=== PATIENT | male | born 1955 | race Caucasian/White ===

== ENCOUNTER 2019-03-17 04:10 | Inpatient (IN) | payer OTHER ==
[~2019-03-17] VITALS: Ht 182.9 cm; Wt 90.7 kg
--- NOTE | 2019-03-17 04:11 | NUR ---
PT TAKEN TO ER BED 11
[2019-03-17 04:13] VITALS: BP 175/108
--- NOTE | 2019-03-17 04:15 | NUR ---
63 y/o M presented to ED with c/o difficulty breathing x2 weeks. Per pt, "I fell about 2 weeks ago and a ladder fell across my chest. Ever since then its been hard to breathe". unable to lie flat. HOB at 90 degrees. -O2 saturation was 90% on room air. Oxygen therapy intiated at 2L, O2 stat remains 90%. increased to 3L O2 stat 91%. increased to 4L O2 stat 97%. Addendum: 03/17/19 at 0442 by TRIP 63 y/o M presented to ED with c/o difficulty breathing x2 weeks. Per pt, "I fell about 2 weeks ago when i was putting up blinds and a ladder fell across my chest. Ever since then its been hard to breathe". R side of chest impacted. unable to lie flat or at 30-45 degrees.HOB at 90 degrees for comfort. bilateral lungs garza clear. discomfort felt during inspiration. labored breathing. -O2 saturation was 90% on room air. Oxygen therapy intiated at 2L, O2 stat remains 90%. increased to 3L O2 stat 91%. increased to 4L O2 stat 97%.
--- NOTE | 2019-03-17 04:20 | NUR ---
Dr. Peralta evaluating patient at bedside.
[2019-03-17] MEDS ORDERED: NACL 0.9% 500 ML IV ONE (04:25)
[2019-03-17] MEDS ORDERED: ALBUTEROL SULFATE/IPRATROPIU 3 ML SOL IH ONE (04:25)
--- NOTE | 2019-03-17 04:25 | NUR ---
EKG PERFORMED AT BEDSIDE
--- NOTE | 2019-03-17 04:28 | NUR ---
RT AND LAB AT BEDSIDE.
[2019-03-17] MEDS ORDERED: NITROGLYCERIN 2% 1 GM PKT TP ONE (04:35)
--- NOTE | 2019-03-17 04:38 | NUR ---
X-Ray at bedside.
[2019-03-17 04:42] LABS: BASOPHILS # (AUTO) 0.1 K/uL (0.00-0.22); BASOPHILS % (AUTO) 0.9 % (0.0-2.0); EOSINOPHILS # (AUTO) 0.1 K/uL (0-0.4); EOSINOPHILS % (AUTO) 0.9 % (0.0-4.0); HEMATOCRIT 41.1 % (36-52); HEMOGLOBIN 13.6 g/dL (12.0-18.0); LYMPHOCYTES # (AUTO) 1.7 K/uL (2.0-11.5); LYMPHOCYTES % (AUTO) 15.7 % (20.5-51.1); MEAN CORPUSCULAR HEMOGLOBIN 31 pg (27-31); MEAN CORPUSCULAR HGB CONC 33 g/dL (33-37); MEAN CORPUSCULAR VOLUME 94.7 fL (80-94); MONOCYTES % (AUTO) 9.1 % (1.7-9.3); NEUTROPHILS # (AUTO) 7.9 K/uL (1.8-7.7); NEUTROPHILS % (AUTO) 73.4 % (42.2-75.2); PLATELET COUNT (AUTO) 323 K/uL (140-450); RED BLOOD CELL COUNT(AUTO) 4.34 MIL/uL (4.20-6.10); RED CELL DISTRIBUTION WIDTH 16.9 % (11.6-13.7); WHITE BLOOD COUNT (AUTO) 10.8 K/uL (4.8-10.8)
[2019-03-17] MEDS ORDERED: FUROSEMIDE 40 MG/4 ML VIAL IVP ONE (04:55)
[2019-03-17] MEDS ORDERED: PIPERACILLIN/TAZOBACTAM 3.375 GM in DEXTROSE 5% 50 ML IV ONE (04:55)
[2019-03-17 05:01] LABS: PROTHROMBIN TIME 12.4 secs (10.8-13.4)
[2019-03-17] MEDS ORDERED: PIPERACILLIN/TAZOBACTAM 3.375 GM VIAL IV ONE (05:08)
[2019-03-17 05:10] LABS: ALBUMIN 2.7 g/dL (3.4-5.0); ANION GAP 13.3 (8-16); CARBON DIOXIDE 29.4 mmol/L (21-32); CREATININE 1.1 mg/dL (0.7-1.3); POTASSIUM 3.7 mmol/L (3.5-5.1); TOTAL BILIRUBIN 0.6 mg/dL (0.0-1.0)
[2019-03-17] MEDS ORDERED: ASPIRIN 81 MG TAB.CHEW PO ONE (05:20)
--- NOTE | 2019-03-17 05:30 | NUR ---
Pt awake. VSS. bedrails x2 up. HOB elevatd for comfort. Will continue to monitor.
[2019-03-17] MEDS ORDERED: ONDANSETRON 4 MG/2 ML VIAL IVP PRN (05:45)
[2019-03-17] MEDS ORDERED: ACETAMINOPHEN 325 MG TAB PO PRN (05:45)
[2019-03-17] MEDS ORDERED: cloNIDine 0.1 MG TAB PO PRN ×2 (05:50→07:16)
--- NOTE | 2019-03-17 06:10 | NUR ---
Patient will be admitted to care of Dr. Moreno. Admited to [facility] [place] . Will go to room 111B Belongings list completed. Report to RAIN Franks. Transfer of care at this time.
--- NOTE | 2019-03-17 07:05 | NUR ---
RECEIVED REPORT FROM CENTRAL SERVICE TECHNICIAN RN AT BEDSIDE FOR CONTINUITY OF CARE. PATIENT AWAKE AND ALERT, ON 4L O2 VIA NC. PATIENT DX OF CHF. DENIES CHEST PAIN AT PRESENT. IV SITE INTACT, SL. UPDATED BOARD. MRSA SCREENING DONE. SAFETY PRECAUTIONS IN PLACE, CALL LIGHT WITHIN REACH, WILL CONTINUE TO MONITOR PATIENT.
[2019-03-17 07:14] LABS: APPEARANCE,URINE SL CLOUDY (CLEAR); BILIRUBIN,URINE NEGATIVE (NEGATIVE); BLOOD, URINE 2+ (NEGATIVE); COLOR,URINE YELLOW (YELLOW); LEUKOCYTE ESTERASE ,URINE 2+ (NEGATIVE); NITRITE, URINE NEGATIVE (NEGATIVE); PH,URINE 5.5 (5.0-9.0); UGLUCOSE NEGATIVE (NEGATIVE)
[2019-03-17 08:00] VITALS: BP 153/78
[2019-03-17 08:04] LABS: WBC,URINE 60-80 /HPF (0-5)
--- NOTE | 2019-03-17 08:10 | NUR ---
ORIENTED PATIENT TO ROOM, TV, BATHROOM. INITIAL ASSESSMENT DONE. WILL CONTINUE TO MONITOR PATIENT.
--- NOTE | 2019-03-17 08:14 | NUR ---
PATIENT HAS BEEN SCREENED AND CATEGORIZED MODERATE NUTRITION RISK. PATIENT WILL BE SEEN WITHIN 3-5 DAYS OF ADMISSION. 03/19/19JOSE AR[address]
[2019-03-17] MEDS: LISINOPRIL 10 MG TAB PO SCH (09:28)
[2019-03-17] MEDS: FUROSEMIDE 40 MG/4 ML VIAL IVP SCH ×2 (09:28→20:16)
[2019-03-17] MEDS: METOPROLOL 25 MG TAB PO SCH ×2 (09:28→20:16)
[2019-03-17] MEDS: ENOXAPARIN 40 MG/0.4 ML SYR SUBQ SCH (09:36)
--- NOTE | 2019-03-17 09:36 | NUR ---
ORDERED MEDICATIONS GIVEN. PATIENT TOLERATED IT. PATIENT DENIES CHEST PAIN OR SOB. SAFETY PRECAUTIONS IN PLACE, CALL LIGHT WITHIN REACH, WILL CONTINUE TO MONITOR PATIENT.
--- NOTE | 2019-03-17 10:50 | NUR ---
SATURATION 98% ON SUPPLEMENTAL OXYGEN AT 4 LPM VIA NC TITRATED FIO2 TO 2 LPM [place]/RN NOTIFIED
[2019-03-17] MEDS ORDERED: PNEUMOCOCCAL VACCINE 23 MCG/0.5 ML VIAL IMVAC SCH (11:20)
--- NOTE | 2019-03-17 11:39 | NUR ---
Follow up appointment with PCP Dr. Nicky Bonilla on 03/25/19 at 0900. Clinic address [address] [place] [id number], . Apointment given to pt with verbal understanding.
[2019-03-17 12:00] VITALS: BP 131/91
[2019-03-17] MEDS ORDERED: POTASSIUM CHLORIDE 10 MEQ TABER PO PRN (14:00)
--- NOTE | 2019-03-17 14:00 | NUR ---
DR CERRATO IN TO SEE PATIENT. WILL WAIT FOR HIS ORDERS. PATIENT CURRENTLY RESTING IN BED, NO COMPLAINTS AT THIS TIME. SAFETY PRECAUTIONS IN PLACE, CALL LIGHT WITHIN REACH, WILL CONTINUE TO MONITOR PATIENT.
[2019-03-17 16:00] VITALS: BP 139/92
--- NOTE | 2019-03-17 19:24 | NUR ---
REPORT GIVEN TO REGISTERED NURSE MIDWIFE NURSE AT BEDSIDE FOR CONTINUITY OF CARE. PATIENT SLEEPING AND IN STABLE CONDITION.
--- NOTE | 2019-03-17 19:25 | NUR ---
RECEIVED BEDSIDE REPORT FROM DAY SHIFT RN. PT IS AAO X4. ON NC 2L O2. RESPIRATIONS ARE EQUAL AND UNLABORED. PT DENIES ANY PAIN. SHAI PITTING EDEMA. PT IS AMBULATORY. ON STRICT I&O. IV ON L FA 20G SL. HAS BLISTER ON L BIG TOE. AND BLISTER ON R JASON. PLAN OF CARE DISCUSSED AND SAFETY MEASURES ARE IN PLACE. CALL LIGHT WITHIN REACH.
[2019-03-17 20:00] VITALS: BP 145/96
--- NOTE | 2019-03-17 20:16 | NUR ---
VITAL SIGNS ARE STABLE. DUE MEDICATIONS GIVEN PT TOLERATED WELL. SAFETY MEASURES ARE IN PLACE.
--- NOTE | 2019-03-17 21:00 | NUR ---
PT RESTING COMFORTABLY IN BED. VISITOR AT BEDSIDE. ALL NEEDS MET AT THIS TIME. CALL LIGHT WITHIN REACH.
[2019-03-18] VITALS: BP 134/84
--- NOTE | 2019-03-18 | NUR ---
VITAL SIGNS ARE WITHIN NORMAL LIMITS. WOUNDS WERE CLEANSE WITH NS AND APPLIED VERSATEL DRESSING PER ORDERS. PT TOLERATED WELL. NO S/S OF DISTRESS. SAFETY MEASURES ARE IN PLACE. CALL LIGHT WITHIN REACH. WILL CONTINUE TO MONITOR.
--- NOTE | 2019-03-18 02:43 | NUR ---
PT IS SLEEPING COMFORTABLY IN BED. RESPIRATIONS ARE EQUAL AND UNLABORED. CALL LIGHT WITHIN REACH. WILL CONTINUE TO MONITOR.
[2019-03-18 04:00] VITALS: BP 133/94
--- NOTE | 2019-03-18 04:00 | NUR ---
VITAL SIGNS ARE WITHIN NORMAL LIMITS. PT SITTING AT THE EDGE OF THE BED EATING A SANDWICH. NO COMPLAINS AT THIS TIME. CALL LIGHT WITHIN REACH. WILL CONTINUE TO MONITOR.
[2019-03-18 06:50] LABS: ALBUMIN 2.4 g/dL (3.4-5.0); ANION GAP 9.2 (8-16); CARBON DIOXIDE 34.1 mmol/L (21-32); CREATININE 1.2 mg/dL (0.7-1.3); MAGNESIUM 1.6 mg/dL (1.8-2.4); POTASSIUM 3.3 mmol/L (3.5-5.1); TOTAL BILIRUBIN 0.4 mg/dL (0.0-1.0)
--- NOTE | 2019-03-18 07:12 | NUR ---
GAVE BEDSIDE REPORT TO AMBER RN. PT ENDORSED IN STABLE CONDITION. SAFETY MEASURES IN PLACE.
--- NOTE | 2019-03-18 07:13 | NUR ---
RECEIVED REPORT FROM REFRIGERATING TECHNICIAN RN AT BEDSIDE FOR CONTINUITY OF CARE. PATIENT AWAKE AND ALERT, ON 2L O2 VIA NC. PATIENT DENIES CHEST PAIN AT PRESENT. NO SIGN OF SOB OR DISTRESS NOTED. IV SITE INTACT, SL. UPDATED BOARD. UPDATED PATIENT WITH PLAN OF CARE. HE VERBALIZED UNDERSTANDING. SAFETY PRECAUTIONS IN PLACE, CALL LIGHT WITHIN REACH, WILL CONTINUE TO MONITOR PATIENT.
[2019-03-18 08:00] VITALS: BP 142/92
[2019-03-18 08:30] LABS: BASOPHILS # (AUTO) 0.1 K/uL (0.00-0.22); BASOPHILS % (AUTO) 0.8 % (0.0-2.0); EOSINOPHILS # (AUTO) 0.1 K/uL (0-0.4); EOSINOPHILS % (AUTO) 1.1 % (0.0-4.0); HEMATOCRIT 40.5 % (36-52); HEMOGLOBIN 13.2 g/dL (12.0-18.0); LYMPHOCYTES # (AUTO) 1.4 K/uL (2.0-11.5); LYMPHOCYTES % (AUTO) 13.7 % (20.5-51.1); MEAN CORPUSCULAR HEMOGLOBIN 31 pg (27-31); MEAN CORPUSCULAR HGB CONC 33 g/dL (33-37); MEAN CORPUSCULAR VOLUME 95.2 fL (80-94); MONOCYTES # (AUTO) 1.1 K/uL (0.8-1.0); MONOCYTES % (AUTO) 11.1 % (1.7-9.3); NEUTROPHILS # (AUTO) 7.4 K/uL (1.8-7.7); NEUTROPHILS % (AUTO) 73.3 % (42.2-75.2); PLATELET COUNT (AUTO) 312 K/uL (140-450); RED BLOOD CELL COUNT(AUTO) 4.25 MIL/uL (4.20-6.10); RED CELL DISTRIBUTION WIDTH 17.3 % (11.6-13.7); WHITE BLOOD COUNT (AUTO) 10.1 K/uL (4.8-10.8)
[2019-03-18] MEDS: LISINOPRIL 10 MG TAB PO SCH (09:11)
[2019-03-18] MEDS: FUROSEMIDE 40 MG/4 ML VIAL IVP SCH ×2 (09:12→20:25)
[2019-03-18] MEDS: ASPIRIN 81 MG TAB.CHEW PO SCH (09:12)
[2019-03-18] MEDS: METOPROLOL 25 MG TAB PO SCH ×2 (09:12→20:25)
--- NOTE | 2019-03-18 09:17 | NUR ---
ORDERED MEDICATIONS GIVEN. PATIENT TOLERATED THEM. NO COMPLAINTS OF PAIN OR SOB AT THIS TIME. NO COMPLAINTS AT THIS TIME. SAFETY PRECAUTIONS IN PLACE, CALL LIGHT WITHIN REACH, WILL CONTINUE TO MONITOR PATIENT.
[2019-03-18] MEDS: ENOXAPARIN 40 MG/0.4 ML SYR SUBQ SCH (09:22)
--- NOTE | 2019-03-18 10:38 | NUR ---
PT COMPLAINED OF NASAL DRYNESS, ADDED HUMIDIFIER
[2019-03-18 12:00] VITALS: BP 127/86
--- NOTE | 2019-03-18 12:00 | NUR ---
DR CERRATO IN TO SEE THE PATIENT. WILL WAIT FOR HIS ORDERS.
[2019-03-18 16:00] VITALS: BP 125/87
--- NOTE | 2019-03-18 16:15 | NUR ---
VS WNL. PATIENT AWAKE AND ALERT. NO C/O PAIN, NO SIGN OF DISTRESS OR SOB NOTED. SAFETY PRECAUTIONS IN PLACE, CALL LIGHT WITHIN REACH, WILL CONTINUE TO MONITOR PATIENT.
--- NOTE | 2019-03-18 19:32 | NUR ---
REPORT GIVEN AT BEDSIDE TO SALES ENGINEER ENGINEERED PRODUCTS NURSE FOR CONTINUITY OF CARE. PATIENT IN STABLE CONDITION, SLEEPING.
--- NOTE | 2019-03-18 19:33 | NUR ---
RECEIVED FROM AM RN IN SITTING AT THE EDGE OF BED A/O X 4. ROM X 4. DX. OF CHF. HEPLOCKED LFA#20 PATENT. NO COMPLAINTS OF PAIN AT THIS TIME. CARE PLANS FOR THE NIGHT DISCUSSED WITH HIM. CALL LIGHT WITH IN REACH. TELEMETRY MONITORING. 02 SAT AT 95 % WITH 02 AT 2LPM/NC. ABLE TO VERBALIZE NEEDS WELL.
[2019-03-18 20:13] VITALS: BP 131/84
[2019-03-18] MEDS: methylPREDNISolone SS 40 MG/ML VIAL IVP SCH (20:25)
--- NOTE | 2019-03-18 20:30 | NUR ---
PT. SITTING AT SIDE OF BED WATCHING TV. ABLE TO VERBALIZE NEEDS WELL. MEDICATIONS TOLERATED WELL. NO COMPLAINTS DONE.
--- NOTE | 2019-03-18 21:11 | NUR ---
RECEIVED PATIENT ON 1L NASAL CANNULA, PULSE OX SAT 95%. NO RESPIRATORY DISTRESS NOTED AT THIS TIME. WILL CONTINUE TO MONITOR.
--- NOTE | 2019-03-18 22:47 | NUR ---
CHECKED ON PT. SLEEPING AT THIS TIME. NO RESTLESSNESS. CALL LIGHT WITH IN REACH.
--- NOTE | 2019-03-19 00:38 | NUR ---
PT. STILL AWAKE WATCHING TV. PROVIDED WITH ANOTHER SNACK REQUESTED. STATED HE IS HUNGRY AGAIN AND THAT HE CAN'T SLEEP YET AT THIS TIME RT HE KEEPS URINATING FROM THE LASIX MEDICATIONS HE IS TAKING. PER PT. HE USUALLY SLEEPS IN THE DAY TIME.
[2019-03-19 00:48] VITALS: BP 135/94
--- NOTE | 2019-03-19 01:40 | NUR ---
SLEEPING. TELEMETRY MONITORING.
--- NOTE | 2019-03-19 03:14 | NUR ---
SLEEPING AT THIS TIME. NO RESTLESSNESS. TELEMETRY MONITORING. CALL LIGHT WITH IN REACH.
[2019-03-19 03:54] VITALS: BP 142/88
--- NOTE | 2019-03-19 05:35 | NUR ---
PT. AWAKE AT THIS TIME AND WATCHING TV. ABLE TO GO BRP BY HIMSELF. TELEMETRY MONITORING. NO COMPLAINTS DONE. CALL LIGHT WITH IN REACH. A/O X 4.
[2019-03-19 06:39] LABS: BASOPHILS % (AUTO) 0.3 % (0.0-2.0); HEMATOCRIT 39.7 % (36-52); HEMOGLOBIN 13.4 g/dL (12.0-18.0); LYMPHOCYTES # (AUTO) 0.5 K/uL (2.0-11.5); LYMPHOCYTES % (AUTO) 6.3 % (20.5-51.1); MEAN CORPUSCULAR HEMOGLOBIN 32 pg (27-31); MEAN CORPUSCULAR HGB CONC 34 g/dL (33-37); MEAN CORPUSCULAR VOLUME 94.6 fL (80-94); MONOCYTES # (AUTO) 0.2 K/uL (0.8-1.0); MONOCYTES % (AUTO) 2.6 % (1.7-9.3); NEUTROPHILS # (AUTO) 7.5 K/uL (1.8-7.7); NEUTROPHILS % (AUTO) 90.8 % (42.2-75.2); PLATELET COUNT (AUTO) 313 K/uL (140-450); RED BLOOD CELL COUNT(AUTO) 4.19 MIL/uL (4.20-6.10); RED CELL DISTRIBUTION WIDTH 17.2 % (11.6-13.7); WHITE BLOOD COUNT (AUTO) 8.3 K/uL (4.8-10.8)
[2019-03-19 06:56] LABS: ALBUMIN 2.7 g/dL (3.4-5.0); ANION GAP 8.8 (8-16); CARBON DIOXIDE 34.2 mmol/L (21-32); CREATININE 1.1 mg/dL (0.7-1.3); TOTAL BILIRUBIN 0.4 mg/dL (0.0-1.0)
--- NOTE | 2019-03-19 07:20 | NUR ---
ENDORSED TO THE NEXT RN FOR CONTINUITY OF CARE. PT. ALREADY DRESSED UP IN HIS STREET CLOTHES AND STATED HE DEFINITELY IS GOING HOME TODAY.
--- NOTE | 2019-03-19 07:21 | NUR ---
RECEIVED REPORT FROM SET UP MECHANIC HEADING MACHINES RN. PT SITTING AT THE EDGE OF BED A/O X 4. DX OF CHF. SALINE LOCKED LFA#20 PATENT AND INTACT. NO COMPLAINTS OF PAIN AT THIS TIME. PLAN OF CARE DISCUSSED WITH PT AND HE VERBALIZED UNDERSTANDING. CALL LIGHT WITH IN REACH. TELEMETRY MONITORING. 02 SAT AT 93% WITH 02 AT 1LPM/NC. ABLE TO VERBALIZE NEEDS WELL. BED IN LOW POSITION, CALL LIGHT WITHIN REACH.
[2019-03-19 08:00] VITALS: BP 150/90
[2019-03-19] MEDS: methylPREDNISolone SS 40 MG/ML VIAL IVP SCH (09:26)
[2019-03-19] MEDS: ENOXAPARIN 40 MG/0.4 ML SYR SUBQ SCH (09:26)
[2019-03-19] MEDS: ASPIRIN 81 MG TAB.CHEW PO SCH (09:27)
[2019-03-19] MEDS: FUROSEMIDE 40 MG/4 ML VIAL IVP SCH (09:27)
[2019-03-19] MEDS: LISINOPRIL 10 MG TAB PO SCH (09:27)
[2019-03-19] MEDS: METOPROLOL 25 MG TAB PO SCH (09:27)
--- NOTE | 2019-03-19 09:28 | NUR ---
ADMINISTERED MORNING MEDS TO PT. PT TOLERATED WELL. ALL NEEDS CURRENTLY MET
--- NOTE | 2019-03-19 11:04 | NUR ---
PT SITTING AT BEDSIDE. ALL NEEDS CURRENTLY MET. WILL CONTINUE TO MONITOR PT CLOSELY.
[2019-03-19 12:00] VITALS: BP 124/85
--- NOTE | 2019-03-19 13:05 | NUR ---
03/19/19 RD INITIAL ASSESSMENT COMPLETED PLEASE REFER TO NUTRITION ASSESSMENT UNDER CARE ACTIVITY FOR ESTIMATED NUTRITIONAL NEEDS. 1. CONTINUE CARDIAC DIET TOLERATED 2. RD PROVIDED NUTRITION EDUCATION ON SODIUM RESTRICTION AND CHF 3. RD TO FOLLOW-UP 5-7 DAYS, HIGH RISK JOSE ARNETT, RD
--- NOTE | 2019-03-19 14:04 | NUR ---
PT IN BED WATCHING TV. NO COMPLAINTS OF PAIN AT THIS TIME. NO SOB NOTED. BED IN LOW POSITION, CALL LIGHT WITHIN REACH. WILL CONTINUE TO ROUND FREQUENTLY ON PT.
--- NOTE | 2019-03-19 16:00 | NUR ---
PT DISCHARGED HOME FOR SELF CARE. PT DISCHARGE TEACHING DONE. PT VERBALIZED UNDERSTANDING OF TEACHING. PT UNABLE TO SIGN PAPERWORK DUE TO WEAKNESS IN UPPER EXTREMITIES. IV REMOVED WITH TIP INTACT. WRIST BAND REMOVED AND PLACED IN SHRED BIN. PNA VACCINE GIVEN AT D/C. PT LEFT IN STABLE CONDITION. ALL PERSONAL BELONGINGS TAKEN WITH PT. PT INSTRUCTED TO FOLLOW-UP WITH PROVIDER WITHIN 3-5 DAYS.
== END 2019-03-19 16:00 | disposition home or self-care (01) | DRG 194 ==
LOC: MED 04:10 → MTU 05:46
PROVIDERS: ADMIT Internal Medicine Pulmonary Disease; ATTEND Internal Medicine Pulmonary Disease
PROC: 3E0234Z Introduction of Serum, Toxoid and Vaccine into Muscle, Percutaneous Approach (ICD-10-PCS; principal; 2019-03-19)
DX: I11.0 Hypertensive heart disease with heart failure (principal); E44.0 Moderate protein-calorie malnutrition; J44.0 Chronic obstructive pulmonary disease with (acute) lower respiratory infection; M48.02 Spinal stenosis, cervical region; J44.1 Chronic obstructive pulmonary disease with (acute) exacerbation; I50.23 Acute on chronic systolic (congestive) heart failure; F17.210 Nicotine dependence, cigarettes, uncomplicated; Z68.27 Body mass index [BMI] 27.0-27.9, adult; Z98.1 Arthrodesis status; Z23 Encounter for immunization
CPT/HCPCS: 36415; 36600; 71045; 80053; 81001; 82803; 83605; 83735; 83880; 84484; 85025; 85610; 85730; 87040; 87081; 87086; 90732; 93005; 94640; 96361; 96365; 96375; 99285; J1650; J1940; J2543; J2920; J7620; Q0092

== ENCOUNTER 2023-04-11 06:10 | Inpatient (IN) | payer OTHER ==
[~2023-04-11] VITALS: Ht 182.9 cm; Wt 98.9 kg
[2023-04-11] VITALS (10 sets, daily range): BP systolic 91–131; BP diastolic 35–91
--- NOTE | 2023-04-11 06:15 | NUR ---
PT BIBA ALS ER BED 10
[2023-04-11] MEDS ORDERED: DILTIAZEM 25 MG/5 ML VIAL IVP ONE ×4 (06:25→08:39)
[2023-04-11] MEDS ORDERED: cefTRIAXone 1,000 MG in DEXT 5% MINI-BAG PLUS 50 ML IV ONE (06:40)
[2023-04-11] MEDS ORDERED: ACETAMINOPHEN 650 MG SUPP RC ONE (06:45)
--- NOTE | 2023-04-11 06:46 | NUR ---
LABS URINE AND COVID SWAB OBTAINED AND SENT TO LAB
[2023-04-11] MEDS: NACL 0.9% 2,000 ML IV SCH ×2 (06:47→08:06)
[2023-04-11] MEDS ORDERED: cefTRIAXone 1,000 MG VIAL ONE (06:48)
--- NOTE | 2023-04-11 07:11 | NUR ---
PT TO CT
[2023-04-11 07:22] LABS: ALBUMIN 3.6 g/dL (3.4-5.0); ANION GAP 16.8 (8-16); CARBON DIOXIDE 28.1 mmol/L (21-32); CREATININE 2.9 mg/dL (0.6-1.3); POTASSIUM 4.9 mmol/L (3.5-5.1); TOTAL BILIRUBIN 1.5 mg/dL (0.0-1.0)
[2023-04-11 07:26] LABS: BASOPHILS # (AUTO) 0.1 K/uL (0.00-0.22); HEMOGLOBIN 16.8 g/dL (12.0-18.0); LYMPHOCYTES # (AUTO) 0.6 K/uL (2.0-11.5); MEAN CORPUSCULAR HEMOGLOBIN 30 pg (27-31); MEAN CORPUSCULAR HGB CONC 32 g/dL (33-37); MONOCYTES # (AUTO) 0.4 K/uL (0.8-1.0); WHITE BLOOD COUNT (AUTO) 7.2 K/uL (4.8-10.8)
[2023-04-11 07:43] LABS: BASOPHILS % (AUTO) 0.7 % (0.0-2.0); EOSINOPHILS % (AUTO) 0.6 % (0.0-4.0); HEMATOCRIT 51.8 % (36-52); LYMPHOCYTES % (AUTO) 7.8 % (20.5-51.1); MEAN CORPUSCULAR VOLUME 92.8 fL (80-94); MONOCYTES % (AUTO) 5.1 % (1.7-9.3); NEUTROPHILS # (AUTO) 6.2 K/uL (1.8-7.7); NEUTROPHILS % (AUTO) 85.8 % (42.2-75.2); PLATELET COUNT (AUTO) 285 K/uL (140-450); RED BLOOD CELL COUNT(AUTO) 5.59 MIL/uL (4.20-6.10); RED CELL DISTRIBUTION WIDTH 18.1 % (11.6-13.7)
[2023-04-11] MEDS ORDERED: NACL 0.9% 1,000 ML IV ONE ×2 (08:05→10:10)
[2023-04-11 08:40] LABS: APPEARANCE,URINE CLEAR (CLEAR); BILIRUBIN,URINE 2+ (NEGATIVE); BLOOD, URINE 3+ (NEGATIVE); COLOR,URINE YELLOW (YELLOW); LEUKOCYTE ESTERASE ,URINE 2+ (NEGATIVE); NITRITE, URINE NEGATIVE (NEGATIVE); PH,URINE 6.5 (5.0-9.0); UGLUCOSE TRACE (NEGATIVE)
[2023-04-11 08:51] LABS: RBC,URINE 20-50 /HPF (0-5)
--- NOTE | 2023-04-11 08:58 | NUR ---
UPON RETURN FROM X RAYS, PT AWAKE ALERT X 3, "I'VE ALWAYS HAD AFIB, IT CAN GO SO FAST SOMETIMES
--- NOTE | 2023-04-11 09:00 | NUR ---
SISTER REYNA AT BEDSIDE "HE LIVES SKIP AND DOES NOT DRINK WATER ONLY [place]W" Addendum: 04/11/23 at 1047 by DEVAN LIVES ALONE
[2023-04-11] MEDS: NACL 0.9% 1,000 ML IV SCH ×2 (10:45→15:54)
[2023-04-11] MEDS ORDERED: NOREPINEPHRINE 16 MG in DEXTROSE 5% 250 ML IV PRN (10:45)
--- NOTE | 2023-04-11 10:47 | NUR ---
DR SKINNER AWARE OF HR NOW 139, BP 93/64 ON 4TH L OF NS. PT RESTLESS, CONSOLABLE
[2023-04-11] MEDS ORDERED: ACETAMINOPHEN 325 MG TAB PO PRN (11:15)
[2023-04-11] MEDS ORDERED: NITROGLYCERIN 0.4 MG TAB SL PRN (11:15)
[2023-04-11] MEDS ORDERED: POTASSIUM CHLORIDE 10 MEQ TABER PO PRN (11:15)
[2023-04-11] MEDS ORDERED: MAG SULF 2000 MG/WATER PREMIX 50 ML IV PRN (11:15)
[2023-04-11] MEDS ORDERED: ONDANSETRON 4 MG/2 ML VIAL IVP PRN (11:15)
[2023-04-11 11:57] LABS: ANION GAP 13.1 (8-16); CARBON DIOXIDE 27.1 mmol/L (21-32); CREATININE 2.6 mg/dL (0.6-1.3); POTASSIUM 4.2 mmol/L (3.5-5.1)
[2023-04-11 12:03] LABS: PROTHROMBIN TIME 16.7 secs (10.8-13.4)
[2023-04-11 12:10] LABS: CHOL/HDL RATIO 2.4 (1-4.5); FREE T4 (FREE THYROXINE) 1.53 ng/dL (0.76-1.46); MAGNESIUM 1.6 mg/dL (1.8-2.4); PHOSPHORUS 5.3 mg/dL (2.5-4.9); THYROID STIMULATING HORMONE 0.75 uIU/mL (0.34-3.74)
--- NOTE | 2023-04-11 12:11 | NUR ---
PER PT "REYNA IS JUST A FRIEND, MY SISTER'S NAME IS MAY, I HAVE A BROTHERS EDGAR AND ROMAN, I LIVE IN [address] [place] [address] [place] [address]"
--- NOTE | 2023-04-11 12:15 | NUR ---
Patient will be admitted to care of DR SKINNER. Admited to ICU. Will go to room 1. Belongings list completed. Report to CALEB RODRIGEZ.
--- NOTE | 2023-04-11 12:35 | NUR ---
Admission to ICU Received pt drowsy, arousable, equal chest rise and fall, on 3L nasal cannula. Pt frequently moving in bed but states no pain or distress. Pt AOx3, forgetful. IV sites intact, patent, IV fluid infusing to right FA 20G. Pt with sandhu in place. Edematous BLE. Pt with fall risk precautions in place.
[2023-04-11] MEDS ORDERED: HEPARIN PER PHARMACY MC PRN (13:00)
[2023-04-11] MEDS ORDERED: hePARIN / DEXT 5% PREMIX 250 ML IV SCH (13:00)
--- NOTE | 2023-04-11 13:00 | NUR ---
EKG and echocardiogram being done at bedside, pt unable to stay still to be cooperative with testing although reoriented and reinstructed multiple times to be still for testing. Pt states understanding and states "I have no control over the limbs sometimes."
--- NOTE | 2023-04-11 15:00 | NUR ---
Ultrasound being done at bedside
[2023-04-11] MEDS ORDERED: NOREPINEPHRINE 4 MG in DEXTROSE 5% 250 ML IV PRN (15:25)
--- NOTE | 2023-04-11 15:25 | NUR ---
Dr. Daniel rounding on pt.
--- NOTE | 2023-04-11 15:47 | NUR ---
Placed call out to pt's sister Stefania Cutler and requested home medication list for reconciliation. Stefania states she will have a list and bring to hospital today. Addendum: 04/11/23 at 1747 by Agency RAIN RN CORRECTION: According to pt, Stefania Cutler is a friend.
[2023-04-11] MEDS ORDERED: APIX5TAB PO (16:32)
[2023-04-11] MEDS ORDERED: SPIR50TA PO (17:53)
[2023-04-11] MEDS ORDERED: TAMS0.4C96 PO (17:53)
[2023-04-11] MEDS ORDERED: EMPA10TA PO (17:53)
[2023-04-11] MEDS ORDERED: CARV6.25 PO (17:53)
--- NOTE | 2023-04-11 17:54 | NUR ---
Medication reconciliation done with information provided by patient's friend, Stefania Cutler. Stefania states there may be more medications, but states she will call back.
--- NOTE | 2023-04-11 18:00 | NUR ---
Pt provided with dinner tray, able to feed self. Offered to clean up pt, but pt states "I'm still eating, I don't need to clean up. Just leave me like this."
[2023-04-11] MEDS ORDERED: DIGOXIN 0.25 MG/ML AMP IV SCH (18:08)
[2023-04-11] MEDS: ALBUTEROL SULFATE/IPRATROPIU 3 ML SOL IH SCH ×2 (18:56→23:20)
--- NOTE | 2023-04-11 19:00 | NUR ---
Pt still eating dinner, states he is not done yet.
--- NOTE | 2023-04-11 19:15 | NUR ---
Endorsed plan of care to RN.
--- NOTE | 2023-04-11 19:55 | NUR ---
AT 1930- Andre PRITESH CONTAMINATED LAND CONSULTANT GAVE A BEDSIDE REPORT
--- NOTE | 2023-04-11 19:56 | NUR ---
AT 1945 REMAINS AFIB UNCONTROLLED [id number]
--- NOTE | 2023-04-11 20:59 | NUR ---
2230 pm- pt is found full of scattered hard and soft formed stool and complete bed bath given and total linen changed done, IV secured
[2023-04-11] MEDS ORDERED: ATORVASTATIN 20 MG TAB PO SCH (21:00)
[2023-04-11] MEDS: DOCUSATE SODIUM 100 MG GELCAP PO SCH (21:00)
[2023-04-11] MEDS ORDERED: METOPROLOL 25 MG TAB PO SCH (21:00)
[2023-04-11] MEDS: PIPERACILLIN/TAZOBACTAM 3.375 GM in DEXTROSE 5% 50 ML IV SCH (21:11)
--- NOTE | 2023-04-11 21:34 | NUR ---
above incident happened at 2030
[2023-04-12] VITALS (10 sets, daily range): BP systolic 94–131; BP diastolic 36–101
[2023-04-12 00:11] LABS: BARBITURATE, URINE NEGATIVE ng/ml (NEG <=200); BENZODIAZEPINE, URINE NEGATIVE ng/mL (NEG <=200); CANNABINOID, URINE NEGATIVE ng/mL (NEG <=50); COCAINE, URINE NEGATIVE ng/mL (NEG <=300); OPIATE, URINE NEGATIVE ng/mL (NEG <=2000); PHENCYCLIDINE SCREEN,URINE NEGATIVE ng/mL (NEG <=25)
[2023-04-12] MEDS: ALBUTEROL SULFATE/IPRATROPIU 3 ML SOL IH SCH ×6 (03:00→22:53)
--- NOTE | 2023-04-12 03:06 | NUR ---
PATIENT ASLEEP. RN REQUESTED NOT TO WAKE UP PATIENT FOR HHNTX. NO SOB NOTED
--- NOTE | 2023-04-12 05:58 | NUR ---
[id number] PT ALREADY SEEN IN BED, LYING ON HIS BED WITH SCATTERED SOFT TO FIRM STOOL. BIG TO SMALL AND ALL WIRES AND BLUE PLASTIC SHEET WITH HUGE AMT OF SOFT STOOL, tHE NURSE Andre icu DAY SHIFT SAID SHE WAS JULIA BUSY AND PT. REFUSED TO BE CLEANED. we CLEAN THE PT AND DID NOT REFUSED TO BE CLEANED
[2023-04-12] MEDS ORDERED: DIGOXIN 0.25 MG/ML AMP IV SCH ×2 (06:00)
--- NOTE | 2023-04-12 06:05 | NUR ---
P-T. WANT TO BE OUT OF BED BEC BY STANDING HE CAN BREATH BETTER
[2023-04-12 06:10] LABS: BASOPHILS % (AUTO) 0.4 % (0.0-2.0); EOSINOPHILS % (AUTO) 0.1 % (0.0-4.0); HEMATOCRIT 46.9 % (36-52); LYMPHOCYTES # (AUTO) 1.3 K/uL (2.0-11.5); LYMPHOCYTES % (AUTO) 11.8 % (20.5-51.1); MEAN CORPUSCULAR HEMOGLOBIN 30 pg (27-31); MEAN CORPUSCULAR HGB CONC 32 g/dL (33-37); MEAN CORPUSCULAR VOLUME 93.7 fL (80-94); MONOCYTES # (AUTO) 1.1 K/uL (0.8-1.0); MONOCYTES % (AUTO) 10.2 % (1.7-9.3); NEUTROPHILS # (AUTO) 8.3 K/uL (1.8-7.7); NEUTROPHILS % (AUTO) 77.5 % (42.2-75.2); PLATELET COUNT (AUTO) 181 K/uL (140-450); RED BLOOD CELL COUNT(AUTO) 5.01 MIL/uL (4.20-6.10); RED CELL DISTRIBUTION WIDTH 18.7 % (11.6-13.7); WHITE BLOOD COUNT (AUTO) 10.6 K/uL (4.8-10.8)
[2023-04-12 07:11] LABS: MAGNESIUM 1.6 mg/dL (1.8-2.4)
--- NOTE | 2023-04-12 07:30 | NUR ---
Received report on pt. Pt currently sleeping in bed, arousable, equal chest rise and fall. No acute distress noted, pt on 3L O2 via nasal cannula. IV sites intact, patent, currently on heparin drip 1000 units/hr, waiting for PTT results per protocol. Echevarria in place draining urine to gravity.
[2023-04-12] MEDS: PIPERACILLIN/TAZOBACTAM 3.375 GM in DEXTROSE 5% 50 ML IV SCH ×2 (07:49→12:22)
[2023-04-12] MEDS: HYDROcodone/APAP 7.5/325 MG 1 TAB PO PRN ×2 (07:50→16:08)
[2023-04-12] MEDS: ASPIRIN 81 MG TAB.CHEW PO SCH (08:09)
[2023-04-12] MEDS: DOCUSATE SODIUM 100 MG GELCAP PO SCH ×2 (08:09→08:43)
[2023-04-12] MEDS: ATORVASTATIN 20 MG TAB PO SCH (08:10)
[2023-04-12] MEDS: PANTOPRAZOLE 40 MG INJ VIAL IVP SCH (08:10)
[2023-04-12] MEDS ORDERED: lisinopriL 5 MG TAB PO SCH (09:00)
[2023-04-12] MEDS: METOPROLOL 25 MG TAB PO SCH ×3 (09:56→13:12)
[2023-04-12 10:00] LABS: ANION GAP 17.9 (8-16); CARBON DIOXIDE 21.3 mmol/L (21-32); CREATININE 2.4 mg/dL (0.6-1.3); POTASSIUM 4.2 mmol/L (3.5-5.1)
--- NOTE | 2023-04-12 10:20 | NUR ---
Dr. Deal rounding on pt, new orders made.
--- NOTE | 2023-04-12 12:30 | NUR ---
Dr. Mistry updated on pt's condition, new orders made.
--- NOTE | 2023-04-12 17:30 | NUR ---
Pt transfer to Telemetry 108B via wheelchair and oxygen. Pt with steady gait to ambulate to ambulate to bed. All belongings sent with pt. Endorsed plan of care and report to Josie RODRIGEZ.
--- NOTE | 2023-04-12 18:00 | NUR ---
RECEIVED PT TRANSFER FROM ICU VIA W/C.AWAKE,ALERT,ON 3L/NC, RESPIRATES EVEN AND UNLABORED,SALINE LOCK IN BOTH ARMS NEEDS ATTENDED,CALL LIGHT & PERSONAL ITEMS WITHIN PT REACH SAFETY MAINTAINED,CONTINUE TO MONITOR PT.
--- NOTE | 2023-04-12 20:00 | NUR ---
HAND-OFF REPORT RECEIVED FROM DEMETRIS PÉREZ FOR CONTINUITY OF CARE. PT RECEIVED STANDING AT BEDSIDE WITH VISITORS. DENIES NEEDS. NO ACUTE DISTRESS. CONTINUE TO MONITOR AND ASSIST NEEDED.
[2023-04-13] VITALS: BP 105/59
[2023-04-13] MEDS: DOCUSATE SODIUM 100 MG GELCAP PO SCH ×3 (00:28→21:00)
[2023-04-13] MEDS: PIPERACILLIN/TAZOBACTAM 3.375 GM in DEXTROSE 5% 50 ML IV SCH ×4 (00:31→22:22)
[2023-04-13] MEDS: METOPROLOL 25 MG TAB PO SCH ×4 (00:33→23:02)
[2023-04-13] MEDS: APIXABAN 2.5 MG TAB PO SCH ×3 (00:35→23:08)
[2023-04-13] MEDS: ALBUTEROL SULFATE/IPRATROPIU 3 ML SOL IH SCH ×5 (03:38→19:09)
[2023-04-13 06:30] LABS: MAGNESIUM 1.8 mg/dL (1.8-2.4); PHOSPHORUS 3.4 mg/dL (2.5-4.9)
[2023-04-13 06:51] LABS: BASOPHILS # (AUTO) 0.1 K/uL (0.00-0.22); BASOPHILS % (AUTO) 0.7 % (0.0-2.0); EOSINOPHILS % (AUTO) 0.3 % (0.0-4.0); HEMATOCRIT 42.9 % (36-52); HEMOGLOBIN 13.8 g/dL (12.0-18.0); LYMPHOCYTES # (AUTO) 1.2 K/uL (2.0-11.5); LYMPHOCYTES % (AUTO) 10.5 % (20.5-51.1); MEAN CORPUSCULAR HEMOGLOBIN 30 pg (27-31); MEAN CORPUSCULAR HGB CONC 32 g/dL (33-37); MEAN CORPUSCULAR VOLUME 93.1 fL (80-94); MONOCYTES # (AUTO) 0.9 K/uL (0.8-1.0); MONOCYTES % (AUTO) 7.7 % (1.7-9.3); NEUTROPHILS # (AUTO) 9.2 K/uL (1.8-7.7); NEUTROPHILS % (AUTO) 80.8 % (42.2-75.2); PLATELET COUNT (AUTO) 184 K/uL (140-450); RED BLOOD CELL COUNT(AUTO) 4.61 MIL/uL (4.20-6.10); RED CELL DISTRIBUTION WIDTH 18.5 % (11.6-13.7); WHITE BLOOD COUNT (AUTO) 11.4 K/uL (4.8-10.8)
[2023-04-13 06:58] LABS: ANION GAP 11.3 (8-16); CARBON DIOXIDE 27.7 mmol/L (21-32); CREATININE 2.2 mg/dL (0.6-1.3)
--- NOTE | 2023-04-13 07:18 | NUR ---
PATIENT HAS BEEN SCREENED AND CATEGORIZED HIGH NUTRITION RISK. PATIENT WILL BE SEEN WITHIN 1-2 DAYS OF ADMISSION. 04/11/23-04/13/[address] CONSULT RECEIVED FOR WOUNDS/PRESSURE INJURY AND CARDIAC DIET EDUCATION
--- NOTE | 2023-04-13 07:30 | NUR ---
HAND-OFF REPORT TO Irineo NURSE. CRITICAL LAB REPORTED TO BRODY BUN 63. UNEVENTFUL NOC.
[2023-04-13 08:00] VITALS: BP 107/61
[2023-04-13] MEDS: ATORVASTATIN 20 MG TAB PO SCH (08:52)
[2023-04-13] MEDS: PANTOPRAZOLE 40 MG INJ VIAL IVP SCH (08:52)
[2023-04-13] MEDS: ASPIRIN 81 MG TAB.CHEW PO SCH (08:53)
[2023-04-13 12:00] VITALS: BP 110/72
--- NOTE | 2023-04-13 15:45 | NUR ---
04/13/23 RD INITIAL ASSESSMENT COMPLETED. PLEASE REFER TO NUTRITION ASSESSMENT UNDER CARE ACTIVITY FOR ESTIMATED NUTRITIONAL NEEDS. 1. RECOMMEND ADDING MECHANICAL SOFT RENAL DIET TO 2GM SODIUM DIET TOLERATED 2. RECOMMEND MODESTO BID TO PROMOTE WOUND HEALING (PROVIDES 160 KCAL, 5 G PROTEIN) 3. RD TO FOLLOW-UP 2-3 DAYS, HIGH RISK HARVINDER GARCIA RD
[2023-04-13 16:00] VITALS: BP 110/64
--- NOTE | 2023-04-13 17:36 | NUR ---
awake,alert,afib hr 110,voided yellow urinal after sandhu cath removed give IV antibiotics due,no adverse reactions noted.needs attended, call light & personal items within pt reach,safety maintained continue to monitor pt.
[2023-04-13 20:00] VITALS: BP 121/70
[2023-04-14] VITALS: BP 100/62
--- NOTE | 2023-04-14 | NUR ---
REMINDS PT DON'T DRINK TOO MUCH SODA , IT HIGH IN SODIUM AND WATER THAT MAKES HIM BLOATED - PT VERBALIZES UNDERSTANDING .
--- NOTE | 2023-04-14 02:00 | NUR ---
RESTING ON BED , NO COMPLAIN MADE .
[2023-04-14 04:00] VITALS: BP 120/63
--- NOTE | 2023-04-14 04:00 | NUR ---
ROUNDS , NO S/SX OF ACUTE DISTRESS NOTED .
--- NOTE | 2023-04-14 06:00 | NUR ---
L IV SITE INFILTRATED - REMOVE IV NEEDLE INTACT AND MIN. BLEEDING . WILL CONT.TO MONITOR .
[2023-04-14] MEDS: METOPROLOL 25 MG TAB PO SCH (06:52)
[2023-04-14] MEDS ORDERED: ALBUTEROL SULFATE/IPRATROPIU 3 ML SOL IH SCH (07:00)
[2023-04-14] MEDS: PIPERACILLIN/TAZOBACTAM 3.375 GM in DEXTROSE 5% 50 ML IV SCH (07:01)
--- NOTE | 2023-04-14 07:38 | NUR ---
ENDORSED PT FOR CONT. OF CARE . I ENDORSED TO AM NURSE THE ZOSYN TIV IS STILL ON GOING , PT REQUESTING WATER PIL , AND REFUSED AM LABS - ENDORSED TO AM NURSE TO INFORM MD ABOUT IT ONCE MD DO ROUNDS - AM NURSE VERBALIZED UNDERSTANDING .
[2023-04-14 08:00] VITALS: BP 111/43
[2023-04-14] MEDS: ASPIRIN 81 MG TAB.CHEW PO SCH (08:42)
[2023-04-14] MEDS: APIXABAN 2.5 MG TAB PO SCH (08:42)
[2023-04-14] MEDS: ATORVASTATIN 20 MG TAB PO SCH (08:43)
[2023-04-14] MEDS: DOCUSATE SODIUM 100 MG GELCAP PO SCH (09:00)
--- NOTE | 2023-04-14 09:33 | NUR ---
WOUND CARE NOTE: PT. IS AAX4, VERBALIZES NEEDS. PT. WITH MULTIPLE SKIN TEARS TO BILATERAL DORSAL HANDS, VERSATEL DRESSING IN PLACE,DRY AND CLEAN. UPPER EXTREMITIES WITH MULTIPLE BRUISING SKIN AND ECCHYMOSIS FROM BLOOD DRAW. 3 HEP-LOCKS TO RIGHT ARM. BLE MULTIPLE DRY STABLE SCABS. PER PT. HE IS TAKING ELIQUIS.BLOOD THINNER. BLEEDING PRECAUTION EDUCATED WITH WOUND CARE INSTRUCTIONS GIVEN . PT. VERBALIZES UNDERSTANDING. POC DISCUSSED WITH PRIMARY NURSE BANDAR. RECOMMENDATION: -CLEANSE RIGHT AND LEFT HAND SKIN TEARS WITH NS, PAT DRY, APPLY OIL EMULSION DRESSING,COVER WITH DRY DRESSING DAILY AND PRN IF SOILING.
== END 2023-04-14 11:19 | disposition left against medical advice (07) | DRG 871 ==
LOC: MED 06:10 → MIC 09:10 → MTU 09:19 → MIC 12:10 → MTU 04-12 17:38
PROC: 0T9B70Z Drainage of Bladder with Drainage Device, Via Natural or Artificial Opening (ICD-10-PCS; principal; 2023-04-11)
DX: A41.9 Sepsis, unspecified organism (principal); I50.23 Acute on chronic systolic (congestive) heart failure; J18.9 Pneumonia, unspecified organism; J96.01 Acute respiratory failure with hypoxia; N17.9 Acute kidney failure, unspecified; N39.0 Urinary tract infection, site not specified; G93.40 Encephalopathy, unspecified; I42.9 Cardiomyopathy, unspecified; J44.0 Chronic obstructive pulmonary disease with (acute) lower respiratory infection; Z20.822 Contact with and (suspected) exposure to COVID-19; I48.91 Unspecified atrial fibrillation; Z53.29 Procedure and treatment not carried out because of patient's decision for other reasons; E86.0 Dehydration; I25.10 Atherosclerotic heart disease of native coronary artery without angina pectoris; J44.9 Chronic obstructive pulmonary disease, unspecified; I11.0 Hypertensive heart disease with heart failure; Z87.891 Personal history of nicotine dependence; Z95.2 Presence of prosthetic heart valve; Z95.1 Presence of aortocoronary bypass graft
CPT/HCPCS: 36415; 70450; 71045; 80048; 80053; 80305; 81001; 82140; 82150; 83036; 83605; 83690; 83735; 83880; 84100; 84439; 84443; 84484; 85025; 85610; 85730; 87040; 87081; 87086; 93005; 93925; 93970; 94640; 96361; 96365; 96375; 99285; C9113; J0696; J1160; J1644; J2543; J3490; J7060; Q0092

== ENCOUNTER 2024-02-21 14:31 | Emergency (ER) | payer OTHER ==
[~2024-02-21] VITALS: Ht 182.9 cm; Wt 99.8 kg
[~2024-02-21 14:31] MED LIST: APIX5TAB PO; CARV6.25 PO; EMPA10TA PO; SPIR50TA PO; TAMS0.4C96 PO
[2024-02-21 14:47] VITALS: BP 111/71; PULSE 56; RESP 19; TEMP 98.7; O2SAT 94
[2024-02-21 15:00] VITALS: O2SAT 94
[2024-02-21] MEDS: BACITRACIN OINT 500 UNITS/GM PKT TP ONE (15:31)
[2024-02-21] MEDS: LIDOCAINE MPF 1% 10 MG/ML VIAL INJ ONE (15:32)
== END 2024-02-21 16:06 | disposition home or self-care (01) ==
LOC: MED 14:31
DX: S81.812A Laceration without foreign body, left lower leg, initial encounter (principal); I11.0 Hypertensive heart disease with heart failure; I50.9 Heart failure, unspecified; F17.200 Nicotine dependence, unspecified, uncomplicated; Z90.49 Acquired absence of other specified parts of digestive tract; Z98.890 Other specified postprocedural states; Z79.899 Other long term (current) drug therapy; Z79.01 Long term (current) use of anticoagulants
CPT/HCPCS: 12002; 99282; J2001